=== PATIENT | female | born 1975 | race Caucasian/White ===

== ENCOUNTER → 2016-04-25 | Outpatient (CLI) | payer BC ==
[~2016-04-25] MED LIST: ACHYD1T PO; DCS100C PO; IBP800T PO; OMEP20CA12 PO; OXYC-12 PO; PREN1TAB19 PO
--- NOTE | 2016-04-26 09:43 | Diagnostic Imaging Report ---
INDICATION: Bilateral screening mammogram with implants. CAD is utilized. The current study was also evaluated with a Computer Aided Detection (CAD) system. No prior studies are available for comparison. This is a baseline study. FINDINGS: The patient has retropectoral implants. The breast parenchyma is heterogeneously dense which may decrease mammographic sensitivity. There is an oval density asymmetry in the lateral aspect of the right CC projection with no definitive correlate on the MLO view. There are multiple benign-appearing calcifications. The left breast demonstrate no suspicious masses or calcifications. IMPRESSION: Focal compression views and ultrasound evaluation for lateral periareolar right breast asymmetries. BI-RADS 0. ACR BI-RADS Category 0: Incomplete. (Needs additional imaging evaluation). Result letter will be mailed to the patient. Note: At least 10% of breast cancer is not imaged by mammography. Dictated by: Dictated on workstation # [id number]
== END ==
LOC: RAD 09:47
PROVIDERS: ATTEND Obstetrics & Gynecology
DX: Z12.31 Encounter for screening mammogram for malignant neoplasm of breast (principal)
CPT/HCPCS: 77067

== ENCOUNTER → 2016-05-03 | Outpatient (CLI) | payer BC ==
--- OUTSIDE RECORDS SUMMARY | 2016-05-03 08:03 | XMS REPORT | Continuity of Care Document ---
Author Author [facility] Organization [facility] Address Unknown Phone Unavailable Allergies Active Description Code Type Severity Reaction Onset Reported/Identified Relationship to Patient Clinical Status Yes No Known Drug Allergies [id number] Drug Allergy Unknown N/ A 10/22/2012 Medications Problems Date Dx Coded Attending Type Code Diagnosis Diagnosed By 04/18/2014 JONATHAN KAY MD Ot 008.8 04/18/2014 JONATHAN KAY MD Ot 644.03 04/18/2014 JONATHAN KAY MD Ot 647.83 05/03/2014 JONATHAN KAY MD Ot 658.11 05/03/2014 JONATHAN KAY MD Ot 665.41 05/03/2014 JONATHAN KAY MD Ot V27.0 04/26/2016 JONATHAN KAY MD Ot Z12.31 ENCNTR SCREEN MAMMOGRAM FOR MALIGNANT NE Procedures Results Encounters ACCT No. Visit Date/Time Discharge Status Pt. Type Provider Facility Loc./Unit Complaint [id number] 05/01/2014 15:32:00 2014 19:00:00 DIS Inpatient JONATHAN KAY MD [facility] [id number] 04/17/2014 15:30:00 2014 07:50:00 DIS Inpatient JONATHAN KAY MD [facility] [id number] 01/06/2014 11:27:00 2013 23:59:59 CLS Outpatient [id number] 01/02/2013 14:49:00 2012 23:59:59 CLS Outpatient [id number] 10/25/2012 07:01:00 2012 15:20:00 DIS Outpatient [id number] 10/22/2012 09:04:00 2012 23:59:59 CLS Outpatient [id number] 10/05/2012 06:47:00 2012 23:59:59 CLS Outpatient [id number] 10/04/2012 07:42:00 2012 23:59:59 CLS Outpatient [id number] 04/25/2016 09:47:00 ACT Outpatient RAHUL REDD, JONATHAN [facility] RAD SCREENING
--- NOTE | 2016-05-03 08:49 | Diagnostic Imaging Report ---
EXAMINATION: Right breast diagnostic mammogram with a Computer Aided Detection (CAD) system. INDICATION: Asymmetry along the outer periareolar aspect of the right breast. FINDINGS: Focal compression views demonstrate less prominent asymmetry in the lateral periareolar aspect in favor of summation artifact of parenchyma of the underlying dense fibroglandular tissue. IMPRESSION: The lateral periareolar asymmetry is favored to be related to summation artifact of parenchyma. An ultrasound evaluation is pending. ACR BI-RADS Category 0: Incomplete. (Needs additional imaging evaluation). Result letter will be mailed to the patient. Note: At least 10% of breast cancer is not imaged by mammography. Dictated by: Dictated on workstation # [id number]
--- NOTE | 2016-05-03 20:03 | Diagnostic Imaging Report ---
Right breast ultrasound. INDICATION: Lateral periareolar asymmetry. FINDINGS: Unremarkable breast parenchyma is seen with no focal lesion. Implant is noted with no significant abnormality. IMPRESSION: Negative study. Also the additional mammographic view is suggestive of summation artifact of parenchyma with no definite underlying lesion seen on focal compression view. ACR BI-RADS Category 1: Negative. Dictated by: Dictated on workstation # [id number]
== END ==
LOC: RAD 08:00
PROVIDERS: ATTEND Obstetrics & Gynecology
DX: R92.8 Other abnormal and inconclusive findings on diagnostic imaging of breast (principal)
CPT/HCPCS: 76641

== ENCOUNTER → 2017-09-07 | Outpatient (CLI) | payer BC ==
--- NOTE | 2017-09-07 17:36 | Diagnostic Imaging Report ---
INDICATION: Routine screening. Comparison is made with prior study from 04/25/2016. 2-D and 3-D bilateral screening mammography was performed. The current study was also evaluated with a Computer Aided Detection (CAD) system. FINDINGS: Both breasts remain heterogeneously dense, limiting the sensitivity of mammography. Bilateral retropectoral implants are noted. The parenchymal pattern appears stable. There are scattered benign calcifications. No mass or malignant-appearing microcalcifications are seen. The axillae are unremarkable. IMPRESSION: No mammographic features suspicious for malignancy are identified. ACR BI-RADS Category 2: Benign findings. Result letter will be mailed to the patient. Note: At least 10% of breast cancer is not imaged by mammography. Dictated by: Dictated on workstation # [id number]
== END ==
LOC: RAD 13:41
PROVIDERS: ATTEND Obstetrics & Gynecology
DX: Z12.31 Encounter for screening mammogram for malignant neoplasm of breast (principal)
CPT/HCPCS: 77067

== ENCOUNTER → 2020-11-09 | Outpatient (CLI) | payer BC, OTHER ==
--- NOTE | 2020-11-09 11:28 | Diagnostic Imaging Report ---
INDICATION: Routine screening. COMPARISON: 09/07/2017 and 04/25/2016. TECHNIQUE: 2D and 3D bilateral screening mammography was performed with CAD. FINDINGS: Bilateral subpectoral breast implants are noted. The implant contours are smooth. The breast parenchyma is heterogeneously dense, limiting the sensitivity of mammography. There are scattered benign calcifications throughout both breasts. The overall breast parenchymal pattern appears to be stable. No mass or malignant-appearing microcalcifications are seen. The axillae are unremarkable. IMPRESSION: No mammographic features suspicious for malignancy are identified. ACR BI-RADS Category 2: Benign findings. Result letter will be mailed to the patient. Note: At least 10% of breast cancer is not imaged by mammography. Dictated by: Dictated on workstation # [id number]
== END ==
LOC: RAD 09:00
PROVIDERS: ATTEND Obstetrics & Gynecology
DX: Z12.31 Encounter for screening mammogram for malignant neoplasm of breast (principal)
CPT/HCPCS: 77063; 77067

== ENCOUNTER → 2022-05-09 | Outpatient (CLI) | payer OTHER ==
--- NOTE | 2022-05-10 16:20 | Diagnostic Imaging Report ---
3D bilateral screening mammogram with CAD. This study was compared to the prior exams of 11/09/2020, 09/07/2017 and 04/25/2016. There are no current complaints. As noted on the previous study, there are bilateral breast implants in place. The implants appear similar to the prior study. There is no sign of an extracapsular rupture of either implant. The fibroglandular tissue in both breasts is heterogeneously dense. This does limit the sensitivity of this exam. On the pinched views of the breast there is no primary or secondary sign of malignancy noted. However on the CC implant view of the right breast, there is a 7 mm rounded asymmetry just anterior to the implant near midline. This finding cannot be visualized with certainty on the pinched views nor can it be identified on the MLO view. I do suspect that this is probably related to fibroglandular tissue alone. Even so, I would recommend that a compression view of this area be obtained in the CC projection as well as a true lateral view for further study. Ultrasound should also be performed. The overall appearance of the breasts has not changed significantly otherwise. IMPRESSION: 1. Additional mammographic views and ultrasound of the right breast would be recommended. 2. The implants appear stable. ACR BI-RADS Category 0: Incomplete. (Needs additional imaging evaluation). Result letter will be mailed to the patient. Note: At least 10% of breast cancer is not imaged by mammography. Dictated by: Dictated on workstation # [id number]
== END ==
LOC: RAD 14:45
PROVIDERS: ATTEND Nurse Practitioner Family
DX: Z01.89 Encounter for other specified special examinations (principal); Z12.31 Encounter for screening mammogram for malignant neoplasm of breast; Z12.4 Encounter for screening for malignant neoplasm of cervix; Z11.1 Encounter for screening for respiratory tuberculosis; D50.8 Other iron deficiency anemias; R87.618 Other abnormal cytological findings on specimens from cervix uteri; M67.48 Ganglion, other site; R53.83 Other fatigue; E55.9 Vitamin D deficiency, unspecified; Z98.82 Breast implant status
CPT/HCPCS: 77063; 77067

== ENCOUNTER → 2022-05-30 | Outpatient (CLI) | payer OTHER ==
--- NOTE | 2022-05-30 13:58 | Diagnostic Imaging Report ---
INDICATION: Right breast density. Patient presents for additional views. COMPARISON: Correlation is made with the prior screening mammogram from 05/09/2022. TECHNIQUE: Unilateral right 2D and 3D diagnostic mammography was performed with CAD. This includes spot compression CC, rolled CC, and conventional 90 degree lateral views. FINDINGS: The right breast is heterogeneously dense. The area of density noted in the posterior right breast on the CC view appears to resolve with additional views and most likely represented superimposed tissue. IMPRESSION: Additional views fail to demonstrate a discrete mass. The patient may return to routine annual screening mammography. ACR BI-RADS Category 2: Benign findings. Result letter will be mailed to the patient. Note: At least 10% of breast cancer is not imaged by mammography. Dictated by: Dictated on workstation # [id number]
== END ==
LOC: RAD 13:05
PROVIDERS: ATTEND Nurse Practitioner Family
DX: Z00.01 Encounter for general adult medical examination with abnormal findings (principal); Z12.4 Encounter for screening for malignant neoplasm of cervix; Z11.1 Encounter for screening for respiratory tuberculosis; N63.12 Unspecified lump in the right breast, upper inner quadrant
CPT/HCPCS: 77065; G0279

== ENCOUNTER → 2022-05-30 | Outpatient (CLI) | payer OTHER ==
--- NOTE | 2022-05-30 14:46 | Diagnostic Imaging Report ---
PROCEDURE: Pelvic comp/transvaginal sonogram. TECHNIQUE: Complete transabdominal and transvaginal pelvic ultrasound was performed. In addition, limited pelvic Doppler was performed. INDICATION: Dysfunctional uterine bleeding and pelvic pain. FINDINGS: The uterus is anteverted measuring 8.7 x 5.7 x 6.5 cm. The endometrium is 9 mm in thickness. No myometrial mass is identified. There is trace fluid within the endometrial canal. The right ovary measures 2.5 x 1.5 x 1.8 cm and the left ovary measures 3.0 x 1.2 x 2.5 cm. Both ovaries contain small follicles. There is blood flow to both ovaries. No adnexal mass or free pelvic fluid is detected. IMPRESSION: Essentially unremarkable transabdominal and transvaginal pelvic ultrasound with limited pelvic Doppler. Dictated by: Dictated on workstation # [id number]
== END ==
LOC: RAD 13:07
PROVIDERS: ATTEND Surgery
DX: N93.8 Other specified abnormal uterine and vaginal bleeding (principal); R10.2 Pelvic and perineal pain
CPT/HCPCS: 76830; 76856